=== PATIENT | female | born 1965 | race Caucasian/White ===

== ENCOUNTER 2025-05-13 15:14 | Inpatient (IN) ==
[2025-05-13] MEDS: SODIUM CHLORIDE 0.9% 500 ML IV STA (15:55)
[2025-05-13] MEDS: ONDANSETRON INJ 2 MG/ML 2 ML VIAL IV STA (15:55)
[2025-05-13] MEDS: FAMOTIDINE 20MG IV PUSH 20 MG/5 ML SYR IV STA (15:55)
--- NOTE | 2025-05-13 15:58 | Emergency Department Note ---
Impression & Plan SBO (small bowel obstruction), Vomiting, Coffee ground emesis, History of gastric bypass ED Provider Note NAME: VIOLET BURRELL AGE: 59 SEX: F : 1965 ARRIVES VIA: Walk-In INFORMANT: [Patient] ED PROVIDER(S): [Arcadio Suggs MD] CHIEF COMPLAINT: GI bleeding HISTORY OF PRESENT ILLNESS: Patient is a 59-year-old female who presents with several weeks of left arm pain in the region of the forearm. She thought she just pulled a muscle. She states that last evening, she felt bloated and thought she might just have some gas issues. This morning, the left arm pain seemed worse and she began vomiting around 3 or 4 hours ago. The vomit was coffee-ground in color. She has felt tired and fatigued and she noticed some black stool. The patient has not had cough or fever. She does not take any blood thinning agents, she does not use aspirin or nonsteroidals. She has had a previous bariatric surgery. She is on Prilosec daily. PMHx/PSHx/Social Hx: See Below PHYSICAL EXAM: GENERAL: Patient is in no acute distress. HEENT: No acute trauma, normocephalic atraumatic, mucous membranes moist, no nasal congestion. NECK: No stridor, no adenopathy, no meningismus, trachea is midline. LUNGS: Clear to auscultation bilaterally, no wheeze, no rhonchi, breath sounds equal. HEART: Without murmurs gallops or rubs, regular rate and rhythm. ABDOMEN: Soft, tender in the epigastrium, no distention. EXTREMITIES: No cyanosis, full range of motion of all the joints without pain or difficulty. Mild bilateral pedal edema. NEUROLOGIC: Oriented x 3, no acute motor or sensory deficits, no focal weakness. SKIN: No jaundice, no diaphoresis. Rectal: Darker stool, heme-negative. Exam performed with female nurse wired music operator. DIFFERENTIAL DIAGNOSIS: GI bleeding, ulcer, gastritis, anemia, foodborne or viral illness, bowel obstruction, among others. EMERGENCY DEPARTMENT PROCEDURES: MEDICAL DECISION MAKING: There is no leukocytosis or concerning anemia. There is a normal platelet count. No coagulopathy. No renal failure or significant electrolyte abnormality. No concerning liver enzyme elevation. No evidence for pancreatitis. ECG shows a sinus rhythm, no acute ST elevation. Cardiac enzyme testing x 1 is not consistent with acute cardiac injury. Abdominal and pelvis CT shows a small bowel obstruction. I did perform a rectal exam, stool was dark in color but heme-negative. Patient received IV saline, IV Protonix, IV Zofran and IV morphine. She was given IV Pepcid, IV Tylenol. With the above interventions, the patient was feeling improved. The patient presents with coffee-ground emesis. She was found to have a small bowel obstruction. Certainly, with her history of gastric bypass, upper GI bleeding is a true consideration. I do think the patient deserves a hospital stay with further workup and care. I did speak with general surgery. The patient is to be hospitalized on the medicine service. Supportive measures for now, no need for acute surgical intervention. I spoke with the patient and case management, the on-call hospitalist was consulted. Prior/Outside records/notes reviewed: None ECG per my interpretation: Indication was possible GI bleeding. ECG shows a normal sinus rhythm with a rate of 87. There is no ST elevation, no PVCs. The QTc is 457. Continuous Cardiac Monitoring per my interpretation: An order was placed for continuous cardiac monitoring. The monitor shows a rate of 94 with normal sinus rhythm. Imaging/x-ray results per my interpretation: Chronic Medical/Social conditions affecting care: History of previous gastric weight loss surgery. Care/Management discussed with: General Surgery-Dr. Hoskins. Case management and the on-call hospitalist. Level of care consideration(s): After review of the information above and other included data: --I believe the patient requires escalation of care to admission DISPOSITION: Admission Past Med/Surg History Problem List (Updated 05/13/25 @ 20:55 by Arcadio Suggs MD) History of gastric bypass (Acute) Coffee ground emesis (Acute) Vomiting (Acute) SBO (small bowel obstruction) (Acute) Small bowel obstruction Encounter for pre-operative examination Medical History Osteoarthritis Spinal stenosis cervical area Gastric ulcer hx as a child ("bleeding ulcer") GERD (gastroesophageal reflux disease) Hx of El thyroiditis euthyroid per patient/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 ([facility]) Family History Grandfather (Maternal) Family history of diabetes mellitus Mother Family history of diabetes mellitus Other No family history of adverse response to anesthesia Social History Smoking Status: Never smoker Second Hand Exposure: Yes ( smokes in the home); Do You Dip or Chew Tobacco: No; Hx Alcohol Use: Yes Hx Substance Use: No Preferred Language: Estonian Communication Ability: Effective Network Lead Required: No Beliefs That Will Affect Care: None Current Living Situation: Spouse Feels Safe at Home: Yes Assistive Devices: CPAP, Denture - Upper and Glasses Allergies Allergies Allergy/AdvReac Type Severity Reaction Status Date / Time No Known Allergies Allergy Unknown Verified 02/08/20 11:35 Home Meds Home Medications Medication Instructions Recorded Confirmed omeprazole 20 mg capsule,delayed 20 mg PO DAILY 02/08/20 05/13/25 release Bariatric Multivitamins 1 tab PO DAILY 05/13/25 05/13/25 acetaminophen 500 mg tablet 500 - 1,000 mg PO Q6H PRN Pain 05/13/25 05/13/25 oxybutynin chloride 5 mg 5 mg PO PM 05/13/25 05/13/25 tablet,extended release 24 hr semaglutide (weight loss) 2.4 2.4 mg subcut WK 05/13/25 05/13/25 mg/0.75 mL subcutaneous pen injector (Annalisa) Results & Data (ED) Vital Signs Vital Signs - 24 hr 05/13/25 15:15 05/13/25 15:33 05/13/25 15:43 Temperature 36.7 C Temperature Source Temporal Artery Scan Pulse Rate - Lying 86 Pulse Rate - Sitting 89 Pulse Rate - Standing 89 Pulse Rate 94 H 90 Pulse Rate from SpO2 Sensor 90 Pulse Rhythm Regular Pulse Strength Normal Respiratory Rate 20 17 Blood Pressure - Lying 143/90 H Blood Pressure - Sitting 135/93 Blood Pressure- Standing 148/106 H Blood Pressure 143/96 H 143/90 H Blood Pressure Mean 111 107 Blood Pressure Position Sitting Pulse Oximetry 98 100 Oxygen Delivery Method Room Air Sepsis New/Unexplained Change in Mental Status N/A Sepsis Action Taken by Nursing No Action Required 05/13/25 15:45 05/13/25 15:54 05/13/25 16:01 Temperature Temperature Source Pulse Rate - Lying Pulse Rate - Sitting Pulse Rate - Standing Pulse Rate 89 87 86 Pulse Rate from SpO2 Sensor 88 Pulse Rhythm Pulse Strength Respiratory Rate 21 18 Blood Pressure - Lying Blood Pressure - Sitting Blood Pressure- Standing Blood Pressure 135/93 Blood Pressure Mean 107 Blood Pressure Position Pulse Oximetry 100 99 Oxygen Delivery Method Room Air Sepsis New/Unexplained Change in Mental Status Sepsis Action Taken by Nursing 05/13/25 16:03 05/13/25 16:42 05/13/25 17:09 Temperature Temperature Source Pulse Rate - Lying Pulse Rate - Sitting Pulse Rate - Standing Pulse Rate 91 H 92 H 84 Pulse Rate from SpO2 Sensor 90 92 H 85 Pulse Rhythm Pulse Strength Respiratory Rate 17 15 16 Blood Pressure - Lying Blood Pressure - Sitting Blood Pressure- Standing Blood Pressure 148/106 H 141/88 H 131/82 Blood Pressure Mean 120 105 98 Blood Pressure Position Pulse Oximetry 99 99 99 Oxygen Delivery Method Sepsis New/Unexplained Change in Mental Status Sepsis Action Taken by Nursing 05/13/25 17:21 05/13/25 17:27 05/13/25 17:30 Temperature Temperature Source Pulse Rate - Lying Pulse Rate - Sitting Pulse Rate - Standing Pulse Rate 86 88 Pulse Rate from SpO2 Sensor 86 90 Pulse Rhythm Pulse Strength Respiratory Rate 16 19 Blood Pressure - Lying Blood Pressure - Sitting Blood Pressure- Standing Blood Pressure 125/86 Blood Pressure Mean 98 Blood Pressure Position Pulse Oximetry 98 100 Oxygen Delivery Method Sepsis New/Unexplained Change in Mental Status Sepsis Action Taken by Nursing 05/13/25 17:33 05/13/25 18:39 05/13/25 19:03 Temperature Temperature Source Pulse Rate - Lying Pulse Rate - Sitting Pulse Rate - Standing Pulse Rate 94 H 90 85 Pulse Rate from SpO2 Sensor 93 H 89 85 Pulse Rhythm Pulse Strength Respiratory Rate 20 18 14 Blood Pressure - Lying Blood Pressure - Sitting Blood Pressure- Standing Blood Pressure 139/99 120/79 Blood Pressure Mean 112 92 Blood Pressure Position Pulse Oximetry 97 98 99 Oxygen Delivery Method Sepsis New/Unexplained Change in Mental Status Sepsis Action Taken by Nursing 05/13/25 19:42 05/13/25 20:06 Temperature Temperature Source Pulse Rate - Lying Pulse Rate - Sitting Pulse Rate - Standing Pulse Rate 85 81 Pulse Rate from SpO2 Sensor 88 Pulse Rhythm Pulse Strength Respiratory Rate 19 Blood Pressure - Lying Blood Pressure - Sitting Blood Pressure- Standing Blood Pressure 145/93 H Blood Pressure Mean 110 Blood Pressure Position Pulse Oximetry 97 Oxygen Delivery Method Sepsis New/Unexplained Change in Mental Status Sepsis Action Taken by Residential Medications Current Medication List: was personally reviewed by me Laboratory Data Attestation: I reviewed the patient's lab results. 05/13/25 15:45 05/13/25 15:45 Lab Results 05/13/25 05/13/25 Range/Units 15:45 18:28 WBC 10.78 (4.8-10.8) K/ul RBC 4.47 (4.20-5.40) M/uL Hgb 14.8 (12.0-16.0) g/dl Hct 43.5 (37.0-47.0) % MCV 97.3 (80.0-100.0) fL MCH 33.1 (25.0-34.0) pg MCHC 34.0 (32.0-36.0) g/dL RDW Std Deviation 44.0 (36.4-46.3) fL RDW Coeff of Flako 12.2 (11.5-14.5) % Plt Count 309 (130-400) K/uL MPV 9.5 (9.4-12.4) fL PT 10.5 (9.0-12.0) Seconds INR 1.0 (0.9-1.1) APTT 25 (21-31) Seconds PTT Ratio 0.9 Sodium 141 (136-145) mmol/L Potassium 4.2 (3.5-5.1) mmol/L Chloride 104 (98-107) mmol/L Carbon Dioxide 31 (21-32) mmol/L Anion Gap 6 (3-11) BUN 11 (6-23) mg/dl Creatinine 0.77 (0.6-1.2) mg/dl Est Cr Clr Drug Dosing 65.8 ml/min eGFR 88.26 BUN/Creatinine Ratio 14.3 (10-20) Glucose 101 H (70-99(Fasting)) mg/dl Calcium 9.2 (8.6-10.3) mg/dl Total Bilirubin 0.7 (0.2-1.0) mg/dl AST 24 (13-39) U/L ALT 21 (7-52) U/L Alkaline Phosphatase 71 (34-104) U/L Troponin I High Sens 4.1 (0-14) pg/ml Total Protein 6.9 (6.0-8.3) gm/dl Albumin 3.9 (3.4-5.0) gm/dl Globulin 3.0 (2.5-4.0) gm/dl Albumin/Globulin Ratio 1.3 (0.9-2) Lipase 16 (11-82) U/L Blood Type A Positive Antibody Screen NEGATIVE Administered Medications Sodium Chloride (Nss) 500 mls @ 80 mls/hr IV .Q6H15M PANCHO Stop: 05/14/25 21:14 Last Admin: 05/13/25 20:31 Dose: 80 mls/hr Documented By: DYLAN Discontinued Medications Pantoprazole Sodium 80 mg/ (Dextrose) 120 mls @ 400 mls/hr IV NOW ONE Stop: 05/13/25 15:54 Last Infusion: 05/13/25 17:11 Dose: Infused Documented By: Admin: 05/13/25 16:25 Dose: 400 mls/hr Documented By: DYLAN Famotidine (Pepcid 20mg Iv Push) 20 mg in 5 mls @ 2.5 mls/min IV NOW STA Stop: 05/13/25 15:38 Last Admin: 05/13/25 15:55 Dose: 2.5 mls/min Documented By: DYLAN Sodium Chloride (Nss) 500 mls @ 999 mls/hr IV .Q31M STA Stop: 05/13/25 16:07 Last Infusion: 05/13/25 16:30 Dose: Infused Documented By: Admin: 05/13/25 15:55 Dose: 999 mls/hr Documented By: DYLAN Acetaminophen (Ofirmev) 1,000 mg in 100 mls @ 400 mls/hr IV NOW STA Stop: 05/13/25 18:23 Last Infusion: 05/13/25 20:06 Dose: Infused Documented By: Admin: 05/13/25 18:46 Dose: 400 mls/hr Documented By: DYLAN Ioversol (Optiray 320 100ml) 93 ml IV ONCE ONE Stop: 05/13/25 16:33 Last Admin: 05/13/25 16:32 Dose: 93 ml Documented By: WALLY Morphine Sulfate (Morphine Sulfate 4 Mg/Ml 1 Ml Carp\\Vial) 4 mg IV NOW STA Stop: 05/13/25 18:10 Last Admin: 05/13/25 18:46 Dose: 4 mg Documented By: DYLAN Ondansetron HCl (Ondansetron Inj 2 Mg/Ml 2 Ml Vial) 4 mg IV NOW STA Stop: 05/13/25 15:38 Last Admin: 05/13/25 15:55 Dose: 4 mg Documented By: DYLAN Imaging Data Radiologist's Impression: Abdomen/Pelvis CT 05/13/25 16:13 EXAM: CT abd pelvis IV con only CLINICAL HISTORY: hematemesis. TECHNIQUE: CT of the abdomen and pelvis was performed with contrast 93 ml Optiray 320, with the following protocol: axial images and reconstructed coronal and sagittal images. One of the following dose reduction techniques was utilized for this exam: Automated exposure control, adjustment of the mA and/or kV according to patient size, and use of iterative reconstruction. COMPARISON: No prior studies available for comparison. FINDINGS: Abdomen: Liver: The liver is normal in size, showing homogenous reduced CT density of its parenchyma. No focal lesions, cysts, or masses were identified. Hepatic vasculature and biliary ducts are unremarkable. The portal and the superior mesenteric veins are patent with no thrombosis. Gallbladder and Biliary System: The gallbladder is normal in size and shape. No wall thickening, pericholecystic fluid, A small density is noted within the gallbladder lumen measuring 5 mm likely a gallstone. The common bile duct is normal in caliber without dilation. Pancreas: The pancreatic head, body, and tail are visualized and appear normal in size and density. No pancreatic masses or calcifications were noted. The pancreatic duct is not dilated. Spleen: Normal in size, shape, and density. No splenic lesions or masses were identified. Appendix: The appendix is not clearly visualized without terrell appendiceal fat stranding, and without an appendicolith. No evidence of appendiceal abscess or perforation. Kidneys and Adrenal Glands: Evidence of a well-defined left renal lower calyceal radiodense stone measures 6 mm and of average mean HU of 520-550. No hydronephrosis. Both kidneys are normal in size, shape, and position. Cortical thickness is within normal limits. No sizable right renal radiodense stones. Adrenal glands are unremarkable with no evidence of masses or hyperplasia. Pelvis: Urinary Bladder: Normal in contour and wall thickness. No intraluminal lesions identified. Uterus and adnexa: Couldn't be visualised with no sizable pelvic soft tissue masses. Vagina: Normal in contour and wall thickness. Bowel: Evidence of dilated small bowel loops mainly seen implicating the jejunal loops seen filling the central abdomen and the left hypochondrial regions, reachinga caliber up to 5 cm along the maximum AP dimension, with transition of caliber is seen along the midline posteriorly opposite to L5-S1 level closely related to surgical sutures, seen closely related to the left iliac vessels. The stomach/gastric pouch is collapsed, with surgical sutures seen related to it. Surgical sutures are seen related to proximal jejunal loops. The ileal bowel loops are collapsed with normal CT appearance of its wall. The ascending and the transverse colon is partially filled with fecal matter, with near total collapse of the descending and sigmoid colon as well as the rectum. Peritoneal and Retroperitoneal Structures: Mild ascites. No pathological enlarged lymphadenopathy was noted. Bones and Soft Tissues: Evidence of grade I degenerative anterolisthesis of L5 over S1 vertebral body. Spondylodegenerative changes along the spine. No fractures or abnormal masses were identified. IMPRESSION: 1. An overall picture of small bowel obstruction with dilated jejunal bowel loops and with caliber transition opposite to L5-S1 level closely related to surgical sutures, seen closely related to the left iliac vessels with no sizable soft tissue masses, and it could be attributed to adhesive fibrotic bands as a sequelae of prior surgical intervention (possible bariatric surgery) i.e. adhesive intestinal obstruction. 2. Mild ascites. 3. Fatty liver. 4. Left renal lower calyceal non-obstructive stone with no associated hydronephrosis. 5. A small density is noted within the gallbladder lumen measuring 5 mm likely a gallstone. Electronically signed by Nahid Stone 05-13-2025 6:25 PM Discharge Plan Visit Data Chief Complaint: GI Bleed Stated Complaint: LEFT ARM PAIN,VOMITING,LOOKS LIKE COFFE GROUNDS ED Provider: Arcadio Suggs Discharge Problem: SBO (small bowel obstruction), Vomiting, Coffee ground emesis, History of gastric bypass Patient Disposition: Admitted As Inpatient Condition: Fair Forms Stand Alone Forms: My [facility] Prescriptions Prescriptions: No Action omeprazole 20 mg Capsule,Delayed Release(Dr/Ec) 20 mg PO DAILY acetaminophen [Tylenol Ex Str Rapid Release] 500 mg Tablet 500 - 1,000 mg PO Q6H PRN (Reason: Pain) oxybutynin chloride 5 mg tablet extended release 24hr 5 mg PO PM Wegovy 2.4 mg/0.75 mL pen injector 2.4 mg SUBCUT WK Bariatric Multivitamins 1 tab PO DAILY Rx Instructions: without iron Referrals Referrals: Levy Bullock MD [Outside Practitioners] - Discharge Problem: Vomiting Qualifiers: Vomiting type: unspecified Nausea presence: with nausea Qualified Code(s): R 11.2 - Nausea with vomiting, unspecified
[2025-05-13 16:01] LABS: Hematocrit (blood only) 43.5 % (37.0-47.0); Hemoglobin 14.8 g/dl (12.0-16.0); Mean Corpuscular Hemoglobin 33.1 pg (25.0-34.0); Mean Corpuscular Volume 97.3 fL (80.0-100.0); Mean Platelet Volume 9.5 fL (9.4-12.4); Platelet Count 309 K/uL (130-400); RDW Coefficient of Variation 12.2 % (11.5-14.5); Red Blood Count 4.47 M/uL (4.20-5.40); White Blood Count 10.78 K/ul (4.8-10.8)
[2025-05-13 16:19] LABS: Albumin Globulin Ratio 1.3 (0.9-2); Albumin Level 3.9 gm/dl (3.4-5.0); BUN Creatinine Ratio 14.3 (10-20); Bilirubin,Total 0.7 mg/dl (0.2-1.0); Calcium 9.2 mg/dl (8.6-10.3); Creatinine Clr Calc Pharmacy 65.8 ml/min; Potassium 4.2 mmol/L (3.5-5.1); Total Protein 6.9 gm/dl (6.0-8.3)
[2025-05-13 16:25] LABS: Troponin I High Sensitivity 4.1 pg/ml (0-14)
[2025-05-13] MEDS: PANTOprazole 80 MG in DEXTROSE 5% 100 ML IV ONE (16:25)
[2025-05-13] MEDS: OPTIRAY 320 100ml IV ONE (16:32)
[2025-05-13 17:15] LABS: Partial Thromboplastin Ratio 0.9; Partial Thromboplastin Time 25 Seconds (21-31); Prothrombin Time 10.5 Seconds (9.0-12.0)
--- NOTE | 2025-05-13 18:26 | CT Scan Report ---
EXAM: CT abd pelvis IV con only CLINICAL HISTORY: hematemesis. TECHNIQUE: CT of the abdomen and pelvis was performed with contrast 93 ml Optiray 320, with the following protocol: axial images and reconstructed coronal and sagittal images. One of the following dose reduction techniques was utilized for this exam: Automated exposure control, adjustment of the mA and/or kV according to patient size, and use of iterative reconstruction. COMPARISON: No prior studies available for comparison. FINDINGS: Abdomen: Liver: The liver is normal in size, showing homogenous reduced CT density of its parenchyma. No focal lesions, cysts, or masses were identified. Hepatic vasculature and biliary ducts are unremarkable. The portal and the superior mesenteric veins are patent with no thrombosis. Gallbladder and Biliary System: The gallbladder is normal in size and shape. No wall thickening, pericholecystic fluid, A small density is noted within the gallbladder lumen measuring 5 mm likely a gallstone. The common bile duct is normal in caliber without dilation. Pancreas: The pancreatic head, body, and tail are visualized and appear normal in size and density. No pancreatic masses or calcifications were noted. The pancreatic duct is not dilated. Spleen: Normal in size, shape, and density. No splenic lesions or masses were identified. Appendix: The appendix is not clearly visualized without terrell appendiceal fat stranding, and without an appendicolith. No evidence of appendiceal abscess or perforation. Kidneys and Adrenal Glands: Evidence of a well-defined left renal lower calyceal radiodense stone measures 6 mm and of average mean HU of 520-550. No hydronephrosis. Both kidneys are normal in size, shape, and position. Cortical thickness is within normal limits. No sizable right renal radiodense stones. Adrenal glands are unremarkable with no evidence of masses or hyperplasia. Pelvis: Urinary Bladder: Normal in contour and wall thickness. No intraluminal lesions identified. Uterus and adnexa: Couldn't be visualised with no sizable pelvic soft tissue masses. Vagina: Normal in contour and wall thickness. Bowel: Evidence of dilated small bowel loops mainly seen implicating the jejunal loops seen filling the central abdomen and the left hypochondrial regions, reachinga caliber up to 5 cm along the maximum AP dimension, with transition of caliber is seen along the midline posteriorly opposite to L5-S1 level closely related to surgical sutures, seen closely related to the left iliac vessels. The stomach/gastric pouch is collapsed, with surgical sutures seen related to it. Surgical sutures are seen related to proximal jejunal loops. The ileal bowel loops are collapsed with normal CT appearance of its wall. The ascending and the transverse colon is partially filled with fecal matter, with near total collapse of the descending and sigmoid colon as well as the rectum. Peritoneal and Retroperitoneal Structures: Mild ascites. No pathological enlarged lymphadenopathy was noted. Bones and Soft Tissues: Evidence of grade I degenerative anterolisthesis of L5 over S1 vertebral body. Spondylodegenerative changes along the spine. No fractures or abnormal masses were identified. IMPRESSION: 1. An overall picture of small bowel obstruction with dilated jejunal bowel loops and with caliber transition opposite to L5-S1 level closely related to surgical sutures, seen closely related to the left iliac vessels with no sizable soft tissue masses, and it could be attributed to adhesive fibrotic bands as a sequelae of prior surgical intervention (possible bariatric surgery) i.e. adhesive intestinal obstruction. 2. Mild ascites. 3. Fatty liver. 4. Left renal lower calyceal non-obstructive stone with no associated hydronephrosis. 5. A small density is noted within the gallbladder lumen measuring 5 mm likely a gallstone. Electronically signed by Nahid Stone 05-13-2025 6:25 PM
[2025-05-13] MEDS: MoRPHine SULFATE 4 MG/ML 1 ML CARP\\VIAL IV STA (18:46)
[2025-05-13] MEDS: ACETAMINOPHEN 1,000 MG/100 ML VIAL IV STA (18:46)
[2025-05-13] MEDS ORDERED: ONDANSETRON INJ 2 MG/ML 2 ML VIAL IV PRN (19:55)
--- NOTE | 2025-05-13 20:03 | History & Physical Report ---
Date of Service May 13, 2025 Assessment & Plan (1) Small bowel obstruction: Plan Assessment/plan Small bowel obstruction Possible upper GI bleed Patient with history of multiple abdominal surgery presents to the hospital with nausea, vomiting and coffee-ground emesis Hemoglobin of 14.8 CT abdomen and pelvis shows finding consistent with small bowel obstruction mainly seen implicating the jejunal loops. Bowel rest with n.p.o., IV fluids, encourage ambulation IV PPI twice daily Consult general surgery for SBO Will obtain GI evaluation for possible upper GI bleed monitor CBC GERDon IV Protonix OSAunable to tolerate CPAP Full code DVT prophylaxis SCDs Time spent evaluating patient, direct bedside care, chart review, placing orders, interpretation of diagnostic studies, discussion with consultants, patient, and family members, as well as other required patient management activities is 75 minutes Please note the above document was generated using voice recognition software. It may contain grammatical, syntax or spelling errors. Any formal questions or concerns about the content, text or information contained within the body of this dictation should be directly addressed to the provider for clarification History of Present Illness Chief Complaint: Nausea and vomiting for 1 day Abdominal pain for 1 day Primary Care Provider: NO PCP History obtained from chart review and interview with the patient. Past medical history of chronic lymphocytic thyroiditis, SAMIRA, NSVT, GERD, status post gastric bypass, osteoarthritis Past surgical history of laparoscopic hernia repair, lysis of adhesions in 2011, laparoscopic Alonso-en-Y bypass in 2016, partial hysterectomy in 2017, section x 2 Patient presents to the hospital with abdominal PAIN nausea and vomiting since last evening. She reports that the vomitus was coffee-ground in color. She denies fever, chills, chest pain or shortness of breath. On presentation to the ED she was normotensive, afebrile and saturating well in room air. CT abdomen pelvis showed features consistent with small bowel obstruction. ED provider discussed with surgery on-call; recommended conservative management with bowel rest, IV fluids. Allergies Allergy/AdvReac Type Severity Reaction Status Date / Time No Known Allergies Allergy Unknown Verified 02/08/20 11:35 Home Medications Medication Instructions Recorded Confirmed Type omeprazole 20 mg capsule,delayed 20 mg PO DAILY 02/08/20 05/13/25 History release Bariatric Multivitamins 1 tab PO DAILY 05/13/25 05/13/25 History acetaminophen 500 mg tablet 500 - 1,000 mg PO Q6H PRN Pain 05/13/25 05/13/25 History oxybutynin chloride 5 mg 5 mg PO PM 05/13/25 05/13/25 History tablet,extended release 24 hr semaglutide (weight loss) 2.4 2.4 mg subcut WK 05/13/25 05/13/25 History mg/0.75 mL subcutaneous pen injector (Wegovy) Past Med/Surg History Problem List (Updated 05/13/25 @ 20:01 by Fernando Bradshaw MD) Small bowel obstruction Encounter for pre-operative examination Medical History (Updated 05/13/25 @ 20:01 by Fernando Bradshaw MD) Osteoarthritis Spinal stenosis cervical area Gastric ulcer hx as a child ("bleeding ulcer") GERD (gastroesophageal reflux disease) Hx of El thyroiditis euthyroid per patient/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 ([facility]) Family History Grandfather (Maternal) Family history of diabetes mellitus Mother Family history of diabetes mellitus Other No family history of adverse response to anesthesia Social History Smoking Status: Never smoker Second Hand Exposure: Yes ( smokes in the home); Do You Dip or Chew Tobacco: No; Hx Alcohol Use: Yes Hx Substance Use: No Preferred Language: Macedonian Communication Ability: Effective Manager Financial Reporting Required: No Beliefs That Will Affect Care: None Current Living Situation: Spouse Feels Safe at Home: Yes Assistive Devices: CPAP, Denture - Upper and Glasses Physical Exam Physical Exam: On physical examination; Constitutional: Awake, alert oriented x 3. Respiratory: normal respiratory effort, lungs clear to auscultation, no wheeze, rales, rhonchi. Normal insp/exp effort, no accessory muscle use Cardiovascular: RRR, no murmur, no edema Vessels: no JVD or carotid bruit Chest: normal inspection of chest Abdomen: Distended, nontender. Bowel sound present Musculoskeletal: no cyanosis or clubbing, extremities motor strength 5/5 Skin: no rashes, warm and dry normal turgor Neurologic: PERRL, EOMI, accommodation nl, no face palsy, no dysarthria CN's II- XI intact bilaterally and moves all extremities Psychiatric: A+Ox3, euthymic affect Results & Data Results & Data Vital Signs (Past 12 Hours) Vital Signs Temp Pulse Resp BP Pulse Ox O2 Del Method 05/13/25 17:33 94 H 20 97 05/13/25 17:30 125/86 05/13/25 17:27 88 19 100 05/13/25 17:21 86 16 98 05/13/25 17:09 84 16 131/82 99 05/13/25 16:42 92 H 15 141/88 H 99 05/13/25 16:03 91 H 17 148/106 H 99 05/13/25 16:01 86 05/13/25 15:54 87 18 99 Room Air 05/13/25 15:45 89 21 135/93 100 05/13/25 15:33 90 17 143/90 H 100 05/13/25 15:15 36.7 C 94 H 20 143/96 H 98 Room Air
[2025-05-13] MEDS: SODIUM CHLORIDE 0.9% 500 ML IV SCH (20:31)
[2025-05-13] MEDS: PANTOprazole 40 MG/10 ML SYR IV SCH (23:00)
[2025-05-13] MEDS: MoRPHine SULFATE 2 MG/ML CARP IV PRN (23:01)
[2025-05-14 07:24] LABS: Basophils # (auto) 0.07 K/uL (0.00-0.20); Basophils % (auto) 0.8 %; Eosinophils # (auto) 0.16 K/uL (0.00-0.50); Eosinophils % (auto) 1.8 %; Hematocrit (blood only) 37.2 % (37.0-47.0); Hemoglobin 12.7 g/dl (12.0-16.0); Immature Granulocytes # (auto) 0.03 K/uL (0.01-0.20); Immature Granulocytes % (auto) 0.3 %; Lymphocytes # (auto) 1.44 K/uL (1.20-3.40); Lymphocytes % (auto) 15.9 %; Mean Corpuscular Hemoglobin 33.5 pg (25.0-34.0); Mean Corpuscular Hgb Conc 34.1 g/dL (32.0-36.0); Mean Corpuscular Volume 98.2 fL (80.0-100.0); Mean Platelet Volume 9.6 fL (9.4-12.4); Monocytes % (auto) 12.1 %; Neutrophils # (auto) 6.26 K/uL (1.40-6.50); Neutrophils % (auto) 69.1 %; Platelet Count 251 K/uL (130-400); RDW Coefficient of Variation 12.4 % (11.5-14.5); Red Blood Count 3.79 M/uL (4.20-5.40); White Blood Count 9.06 K/ul (4.8-10.8)
[2025-05-14 07:40] LABS: BUN Creatinine Ratio 19.5 (10-20); Calcium 8.2 mg/dl (8.6-10.3); Creatinine Clr Calc Pharmacy 65.7 ml/min; Potassium 4.1 mmol/L (3.5-5.1)
--- NOTE | 2025-05-14 09:09 | Gastrointestinal Consultation ---
Date of Consultation May 14, 2025 Assessment & Plan (1) Coffee ground emesis: I suspect the coffee ground emesis is related to the vomiting that is related to her SBO. It is minimal coffee ground emesis by description so I don't plan EGD unless it becomes clinically significant. Would treat SBO with bowel rest and let surgery step in when they feel appropriate. I would treat her with PPI for the time being. History of Present Illness Reason for Consultation: coffee ground emesis Attending Physician: Ilan Patel MD History of Present Illness 59 year old female admitted with one day history of abdominal distension and vomiting. She says she vomited "green liquid with coffee ground looking specs in it". She did this a total of seven times yesterday and then was admitted. She has CT findings consistent with SBO involving jejunum. She feels a little better today and has passed a little gas. She has had EGD in the past and has had colonoscopy in the last three years. She gets these done at [facility]. She has not had abdominal complaints prior to yesterday. She has had multiple surgeries on her abdomen including a gastric bypass. She has never had a SBO before. Allergies Allergy/AdvReac Type Severity Reaction Status Date / Time No Known Allergies Allergy Unknown Verified 02/08/20 11:35 Home Medications Medication Instructions Recorded Confirmed Type omeprazole 20 mg capsule,delayed 20 mg PO DAILY 02/08/20 05/13/25 History release Bariatric Multivitamins 1 tab PO DAILY 05/13/25 05/13/25 History acetaminophen 500 mg tablet 500 - 1,000 mg PO Q6H PRN Pain 05/13/25 05/13/25 History oxybutynin chloride 5 mg 5 mg PO PM 05/13/25 05/13/25 History tablet,extended release 24 hr semaglutide (weight loss) 2.4 2.4 mg subcut WK 05/13/25 05/13/25 History mg/0.75 mL subcutaneous pen injector (Wegovy) Patient History Medical History Osteoarthritis Spinal stenosis cervical area Gastric ulcer hx as a child ("bleeding ulcer") GERD (gastroesophageal reflux disease) Hx of El thyroiditis euthyroid per patient/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 ([facility]) Family History Grandfather (Maternal) Family history of diabetes mellitus Mother Family history of diabetes mellitus Other No family history of adverse response to anesthesia Social History Smoking Status: Never smoker Second Hand Exposure: No; Do You Dip or Chew Tobacco: No; Tobacco Cessation Education Requested by Patient: No Hx Alcohol Use: Yes Alcohol type: wine Hx Substance Use: No Preferred Language: Kazakh Communication Ability: Effective Inspector Air Carrier Required: No Beliefs That Will Affect Care: None Current Living Situation: Spouse Other Information That Helps Us Care for You: No Feels Safe at Home: Yes Safety Concerns: Feels Safe At This Time Assistive Devices: None Review of Systems Review of Systems: All systems reviewed & are unremarkable except as noted in HPI & below Physical Exam Physical Exam: Pleasant female in no distress Constitutional: WD/WN, vitals as above Neck: trachea midline, no thyromegaly Respiratory: normal respiratory effort, lungs clear to auscultation Cardiovascular: RRR, no murmur, no edema Gastrointestinal (Abdomen): Inspection/Auscultation: abdomen normal to inspection Percussion/Palpation: + abdomen tender (diffusely) and abdomen soft; no hepatosplenomegaly Musculoskeletal: Extremities: extremities normal to inspection Results & Data Vital Signs (Past 12 Hours) Vital Signs Temp Pulse Pulse Resp BP BP Pulse Ox 05/14/25 07:55 36.6 C 84 16 114/72 97 05/13/25 22:42 36.8 C 75 14 123/78 98 05/13/25 22:15 36.8 C 74 16 123/78 99 05/13/25 21:38 83 18 112/77 98 O2 Del Method 05/14/25 07:55 Room Air 05/13/25 22:42 Room Air 05/13/25 22:15 Room Air 05/13/25 21:38 Room Air Laboratory Results 05/14/25 05/13/25 05/13/25 Range/Units 06:30 18:28 15:45 WBC 9.06 10.78 (4.8-10.8) K/ul RBC 3.79 L 4.47 (4.20-5.40) M/uL Hgb 12.7 14.8 (12.0-16.0) g/dl Hct 37.2 43.5 (37.0-47.0) % MCV 98.2 97.3 (80.0-100.0) fL MCH 33.5 33.1 (25.0-34.0) pg MCHC 34.1 34.0 (32.0-36.0) g/dL RDW Std Deviation 45.0 44.0 (36.4-46.3) fL RDW Coeff of Flako 12.4 12.2 (11.5-14.5) % Plt Count 251 309 (130-400) K/uL MPV 9.6 9.5 (9.4-12.4) fL Immature Gran % (Auto) 0.3 % Neut % (Auto) 69.1 % Lymph % (Auto) 15.9 % Shelby % (Auto) 12.1 % Eos % (Auto) 1.8 % Baso % (Auto) 0.8 % Neut # (Auto) 6.26 (1.40-6.50) K/uL Lymph # (Auto) 1.44 (1.20-3.40) K/uL Shelby # (Auto) 1.10 H (0.11-0.59) K/uL Eos # (Auto) 0.16 (0.00-0.50) K/uL Baso # (Auto) 0.07 (0.00-0.20) K/uL Immature Gran # (Auto) 0.03 (0.01-0.20) K/uL PT 10.5 (9.0-12.0) Seconds INR 1.0 (0.9-1.1) APTT 25 (21-31) Seconds PTT Ratio 0.9 Sodium 142 141 (136-145) mmol/L Potassium 4.1 4.2 (3.5-5.1) mmol/L Chloride 108 H 104 (98-107) mmol/L Carbon Dioxide 29 31 (21-32) mmol/L Anion Gap 5 6 (3-11) BUN 15 11 (6-23) mg/dl Creatinine 0.77 0.77 (0.6-1.2) mg/dl Est Cr Clr Drug Dosing 65.7 65.8 ml/min eGFR 88.26 88.26 BUN/Creatinine Ratio 19.5 14.3 (10-20) Glucose 95 101 H (70-99(Fasting)) mg/dl Calcium 8.2 L 9.2 (8.6-10.3) mg/dl Total Bilirubin 0.7 (0.2-1.0) mg/dl AST 24 (13-39) U/L ALT 21 (7-52) U/L Alkaline Phosphatase 71 (34-104) U/L Troponin I High Sens 4.1 (0-14) pg/ml Total Protein 6.9 (6.0-8.3) gm/dl Albumin 3.9 (3.4-5.0) gm/dl Globulin 3.0 (2.5-4.0) gm/dl Albumin/Globulin Ratio 1.3 (0.9-2) Lipase 16 (11-82) U/L Blood Type A Positive Antibody Screen NEGATIVE Diagnostic Findings Abdomen/Pelvis CT 05/13/25 16:13 EXAM: CT abd pelvis IV con only CLINICAL HISTORY: hematemesis. TECHNIQUE: CT of the abdomen and pelvis was performed with contrast 93 ml Optiray 320, with the following protocol: axial images and reconstructed coronal and sagittal images. One of the following dose reduction techniques was utilized for this exam: Automated exposure control, adjustment of the mA and/or kV according to patient size, and use of iterative reconstruction. COMPARISON: No prior studies available for comparison. FINDINGS: Abdomen: Liver: The liver is normal in size, showing homogenous reduced CT density of its parenchyma. No focal lesions, cysts, or masses were identified. Hepatic vasculature and biliary ducts are unremarkable. The portal and the superior mesenteric veins are patent with no thrombosis. Gallbladder and Biliary System: The gallbladder is normal in size and shape. No wall thickening, pericholecystic fluid, A small density is noted within the gallbladder lumen measuring 5 mm likely a gallstone. The common bile duct is normal in caliber without dilation. Pancreas: The pancreatic head, body, and tail are visualized and appear normal in size and density. No pancreatic masses or calcifications were noted. The pancreatic duct is not dilated. Spleen: Normal in size, shape, and density. No splenic lesions or masses were identified. Appendix: The appendix is not clearly visualized without terrell appendiceal fat stranding, and without an appendicolith. No evidence of appendiceal abscess or perforation. Kidneys and Adrenal Glands: Evidence of a well-defined left renal lower calyceal radiodense stone measures 6 mm and of average mean HU of 520-550. No hydronephrosis. Both kidneys are normal in size, shape, and position. Cortical thickness is within normal limits. No sizable right renal radiodense stones. Adrenal glands are unremarkable with no evidence of masses or hyperplasia. Pelvis: Urinary Bladder: Normal in contour and wall thickness. No intraluminal lesions identified. Uterus and adnexa: Couldn't be visualised with no sizable pelvic soft tissue masses. Vagina: Normal in contour and wall thickness. Bowel: Evidence of dilated small bowel loops mainly seen implicating the jejunal loops seen filling the central abdomen and the left hypochondrial regions, reachinga caliber up to 5 cm along the maximum AP dimension, with transition of caliber is seen along the midline posteriorly opposite to L5-S1 level closely related to surgical sutures, seen closely related to the left iliac vessels. The stomach/gastric pouch is collapsed, with surgical sutures seen related to it. Surgical sutures are seen related to proximal jejunal loops. The ileal bowel loops are collapsed with normal CT appearance of its wall. The ascending and the transverse colon is partially filled with fecal matter, with near total collapse of the descending and sigmoid colon as well as the rectum. Peritoneal and Retroperitoneal Structures: Mild ascites. No pathological enlarged lymphadenopathy was noted. Bones and Soft Tissues: Evidence of grade I degenerative anterolisthesis of L5 over S1 vertebral body. Spondylodegenerative changes along the spine. No fractures or abnormal masses were identified. IMPRESSION: 1. An overall picture of small bowel obstruction with dilated jejunal bowel loops and with caliber transition opposite to L5-S1 level closely related to surgical sutures, seen closely related to the left iliac vessels with no sizable soft tissue masses, and it could be attributed to adhesive fibrotic bands as a sequelae of prior surgical intervention (possible bariatric surgery) i.e. adhesive intestinal obstruction. 2. Mild ascites. 3. Fatty liver. 4. Left renal lower calyceal non-obstructive stone with no associated hydronephrosis. 5. A small density is noted within the gallbladder lumen measuring 5 mm likely a gallstone. Electronically signed by Nahid Stone 05-13-2025 6:25 PM
[2025-05-14] MEDS: ACETAMINOPHEN 1,000 MG/100 ML VIAL IV PRN (09:18)
[2025-05-14] MEDS: LACTATED RINGER'S 1,000 ML IV SCH (09:19)
--- NOTE | 2025-05-14 09:38 | Surgery Consultation ---
Date of Consultation May 14, 2025 Assessment & Plan (1) SBO (small bowel obstruction): Her CT images and results were personally viewed and interpreted by myself She does appear to have a small bowel obstruction likely due to adhesions There is no swelling of the mesentery to suggest internal hernia Just keep her n.p.o. today, no need for an NG tube at this time If she has not made any significant proven or worsens we will repeat a CT of the abdomen pelvis with p.o. contrast tomorrow in hopes this can be therapeutic If she were to worsen or not improve, would recommend transfer to a tertiary care center with bariatric surgery capabilities Will follow (2) History of gastric bypass: History of Present Illness Reason for Consultation: Small bowel obstruction Attending Physician: Ilan Patel MD History of Present Illness This is a 59-year-old female who was admitted yesterday with a small bowel obstruction. She states that she came in with generalized abdominal pain worse in the epigastrium without radiation over the last 24 hours. She was vomiting but has not since she was admitted. She states she is passing a little bit of flatus but no BM. She has a history of multiple abdominal surgeries that include a Alonso-en-Y gastric bypass 15 years ago, multiple C-sections, hysterectomy and hernia repair. She states she does feel overall better this morning than last night but is still having some generalized pain. She denies any fevers or chills. She states she did have some coffee-ground emesis for which GI has been consulted as well. Allergies Allergy/AdvReac Type Severity Reaction Status Date / Time No Known Allergies Allergy Unknown Verified 02/08/20 11:35 Home Medications Medication Instructions Recorded Confirmed Type omeprazole 20 mg capsule,delayed 20 mg PO DAILY 02/08/20 05/13/25 History release Bariatric Multivitamins 1 tab PO DAILY 05/13/25 05/13/25 History acetaminophen 500 mg tablet 500 - 1,000 mg PO Q6H PRN Pain 05/13/25 05/13/25 History oxybutynin chloride 5 mg 5 mg PO PM 05/13/25 05/13/25 History tablet,extended release 24 hr semaglutide (weight loss) 2.4 2.4 mg subcut WK 05/13/25 05/13/25 History mg/0.75 mL subcutaneous pen injector (Wegovy) Patient History Medical History Osteoarthritis Spinal stenosis cervical area Gastric ulcer hx as a child ("bleeding ulcer") GERD (gastroesophageal reflux disease) Hx of El thyroiditis euthyroid per patient/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 ([facility]) Family History Grandfather (Maternal) Family history of diabetes mellitus Mother Family history of diabetes mellitus Other No family history of adverse response to anesthesia Social History Smoking Status: Never smoker Second Hand Exposure: No; Do You Dip or Chew Tobacco: No; Tobacco Cessation Education Requested by Patient: No Hx Alcohol Use: Yes Alcohol type: wine Hx Substance Use: No Preferred Language: Romanian Communication Ability: Effective Scale Adjuster Required: No Beliefs That Will Affect Care: None Current Living Situation: Spouse Other Information That Helps Us Care for You: No Feels Safe at Home: Yes Safety Concerns: Feels Safe At This Time Assistive Devices: None Review of Systems Constitutional: no fever and no chills Eyes: no blind spots and no corrective lenses Ear, Nose, Mouth, Throat: no ear pain and no hearing loss Respiratory: no cough and no dyspnea Cardiovascular: no chest pain and no dyspnea on exertion Gastrointestinal: + abdominal pain, + nausea, + vomiting a nd + constipation; no diarrhea/loose stools Genitourinary: no dysuria and no urinary urgency Musculoskeletal: no back pain and no neck pain Integumentary: no acne, no sores and no erythema Neurologic: no gait abnormality and no headache(s) Psychiatric: no behavioral changes and no depression Hematologic / Lymphatic: no easy bleeding and no easy bruising Physical Exam Constitutional: WD/WN, vitals as above Eyes: PERRL, conjunctivae normal, anicteric sclerae ENMT: external ear and nose normal, oropharynx normal Neck: trachea midline, no thyromegaly Respiratory: normal respiratory effort, lungs clear to auscultation Cardiovascular: RRR, no murmur, no edema Gastrointestinal (Abdomen): normal bowel sounds, soft, nontender, no hepatosplenomegaly Musculoskeletal: no cyanosis or clubbing, extremities motor strength 5/5 Skin: no rashes, warm and dry Neurologic: PERRL, EOMI, accommodation nl, no face palsy, no dysarthria Psychiatric: A+Ox3, euthymic affect Results & Data Vital Signs (Past 12 Hours) Vital Signs Temp Pulse Pulse Resp BP BP Pulse Ox 05/14/25 07:55 36.6 C 84 16 114/72 97 05/13/25 22:42 36.8 C 75 14 123/78 98 05/13/25 22:15 36.8 C 74 16 123/78 99 05/13/25 21:38 83 18 112/77 98 O2 Del Method 05/14/25 07:55 Room Air 05/13/25 22:42 Room Air 05/13/25 22:15 Room Air 05/13/25 21:38 Room Air PG Care Time/CCT Total # of Minutes Spent Total Time Spent with Patient: Total time spent is greater than 50% in coordination of care (as documented) at patient's floor/unit and/or counseling patient: Coding Level of Care Code 81438 IN/OBS CONSULT LVL 5,80M Diagnoses SBO (small bowel obstruction) K56.609 History of gastric bypass Z98.84
--- NOTE | 2025-05-14 13:43 | Hospitalist Progress Note ---
Date of Service May 14, 2025 Assessment & Plan (1) Small bowel obstruction: Plan Small bowel obstruction Possible upper GI bleed -Patient with history of multiple abdominal surgery presents to the hospital with nausea, vomiting and coffee-ground emesis -Hemoglobin of 14.8 -CT abdomen and pelvis shows finding consistent with small bowel obstruction mainly seen implicating the jejunal loops. Plan: -Bowel rest with n.p.o., IV fluids, encourage ambulation -IV PPI twice daily -Consult general surgery, GI for SBO and coffee ground emesis -increase fluid rate based on weight GERDon IV Protonix OSAunable to tolerate CPAP I spent a total of 45 minutes in direct patient care, including [id number] time with the patient and/or family, reviewing medical records, ordering and reviewing diagnostic tests, and coordinating care with other healthcare prov iders. This time includes: history taking, physical examination, medical decision making, counseling, ECG interpretation, imaging interpretation, lab interpretation, orders, and education, excluding time spent in the performance of separately billed services. Admission and Anticipated Discharge Date Admission Date: May 13, 2025 Subjective Patient seen and examined at bedside. Doing better today, abdominal pain improved. Has had several abdominal surgeries which is likely cause of SBO. Passing gas. Review of Systems Review of Systems: CONSTITUTIONAL: Patient denies fevers, chills, sweats and weight changes. EYES: Patient denies any visual symptoms. EARS, NOSE, AND THROAT: No difficulties with hearing. No symptoms of rhinitis or sore throat. CARDIOVASCULAR: Patient denies chest pains, palpitations, orthopnea and paroxysmal nocturnal dyspnea. RESPIRATORY: No dyspnea on exertion, no wheezing or cough. GI: No nausea, vomiting, diarrhea, constipation, abdominal pain, hematochezia or melena. : No urinary hesitancy or dribbling. No nocturia or urinary frequency. No abnormal urethral discharge. MUSCULOSKELETAL: No myalgias or arthralgias. NEUROLOGIC: No chronic headaches, no seizures. Patient denies numbness, tingling or weakness. PSYCHIATRIC: Patient denies problems with mood disturbance. No problems with anxiety. ENDOCRINE: No excessive urination or excessive thirst. DERMATOLOGIC: Patient denies any rashes or skin changes. Physical Exam Physical Exam: Gen: A&O 3 NAD HEENT: NCAT, EOMI, not icteric. External ears normal. No rhinorrhea. Moist mucous membranes. Neck: Supple, full range of motion, no observable masses, No meningeal sign. Lungs: No Respiratory distress. CV: RRR, no edema. Abdomen: trace tenderness in lower abdomen MSK: No joint swelling, no redness. Skin: No rashes, petechiae, lesions. Normal color per patient. Neuro: Normal Gait, Grossly intact. Psych: Appropriate for situation. Results & Data Results & Data Vital Signs (Past 12 Hours) Vital Signs Temp Pulse Resp BP Pulse Ox O2 Del Method 05/14/25 08:30 Room Air 05/14/25 07:55 36.6 C 84 16 114/72 97 Room Air Laboratory Results -personally reviewed, creatinine at baseline, unremarkable WBC and Hgb Medications Administered Acetaminophen (Ofirmev) 1,000 mg in 100 mls @ 400 mls/hr IV Q8H PRN PRN Reason: MILD-MOD PAIN Stop: 05/16/25 19:54 Last Infusion: 05/14/25 09:36 Dose: Infused Documented By: Admin: 05/14/25 09:18 Dose: 400 mls/hr Documented By: HUGH Pantoprazole Sodium (Protonix) 40 mg in 10 mls @ 5 mls/min IV BID PANCHO Stop: 06/12/25 22:39 Last Admin: 05/14/25 09:14 Dose: 5 mls/min Documented By: Admin: 05/13/25 23:00 Dose: 5 mls/min Documented By: EMMA Lactated Ringer's (Lr) 1,000 mls @ 100 mls/hr IV .Q10H PANCHO Stop: 05/17/25 08:29 Last Admin: 05/14/25 09:19 Dose: 100 mls/hr Documented By: HUGH Morphine Sulfate (Morphine Sulfate 2 Mg/Ml Carp) 2 mg IV Q6H PRN PRN Reason: SEVERE PAIN Stop: 05/27/25 19:54 Last Admin: 05/13/25 23:01 Dose: 2 mg Documented By: EMMA
[2025-05-14] MEDS ORDERED: ONDANSETRON INJ 2 MG/ML 2 ML VIAL IV PRN (16:04)
[2025-05-15 07:16] VITALS: RESP 18
[2025-05-15 07:27] LABS: Hemoglobin 12.3 g/dl (12.0-16.0); Mean Corpuscular Hemoglobin 32.1 pg (25.0-34.0); Mean Corpuscular Hgb Conc 32.4 g/dL (32.0-36.0); Mean Corpuscular Volume 99.2 fL (80.0-100.0); Mean Platelet Volume 10.2 fL (9.4-12.4); Platelet Count 199 K/uL (130-400); RDW Coefficient of Variation 12.2 % (11.5-14.5); RDW Standard Deviation 44.2 fL (36.4-46.3); Red Blood Count 3.83 M/uL (4.20-5.40); White Blood Count 5.42 K/ul (4.8-10.8)
[2025-05-15 07:38] LABS: BUN Creatinine Ratio 16.4 (10-20); Calcium 8.4 mg/dl (8.6-10.3); Magnesium 1.7 mg/dl (1.7-2.4); Phosphorus 4.3 mg/dl (2.5-4.9); Potassium 3.9 mmol/L (3.5-5.1)
--- NOTE | 2025-05-15 08:50 | Gastroenterology Progress Note ---
Date of Service May 15, 2025 Assessment & Plan (1) Coffee ground emesis: Plan: I don't plan any endoscopic intervention. No further vomiting and H/H have remained stable. She says she is getting another CT today. Will sign off. Please reconsult if conditions change Admission and Anticipated Discharge Date Admission Date: May 13, 2025 Subjective About the same as yesterday. Still with pain although better. Passing gas but no BM. No more vomiting. H/H are stable. Physical Exam Physical Exam: She looks comfortable Constitutional: WD/WN, vitals as above Results & Data Vital Signs (Past 12 Hours) Vital Signs Temp Pulse Resp BP Pulse Ox O2 Del Method 05/15/25 07:15 36.6 C 82 18 133/85 98 Room Air
--- NOTE | 2025-05-15 09:35 | Surgery Progress Note ---
Date of Service May 15, 2025 Assessment & Plan (1) SBO (small bowel obstruction): Plan: She is only made a little progress over the last 24 hours or so Will repeat a CT of the abdomen pelvis with oral contrast in hopes this can be therapeutic No plans for any urgent surgical intervention as she does have a history of gastric bypass Will follow-up on the CT results and give further recommendations at that time (2) History of gastric bypass: Admission and Anticipated Discharge Date Admission Date: May 13, 2025 Subjective Patient seen and examined. Still with some abdominal pain but improved since yesterday. Denies any nausea or vomiting. She is passing some flatus without BM. Afebrile. Review of Systems Constitutional: no fever and no chills Eyes: no blind spots and no corrective lenses Ear, Nose, Mouth, Throat: no ear pain and no hearing loss Respiratory: no cough and no dyspnea Cardiovascular: no chest pain and no dyspnea on exertion Gastrointestinal: + abdominal pain and + constipation; no nausea, no vomiting and no diarrhea/loose stools Genitourinary: no dysuria and no urinary urgency Musculoskeletal: no back pain and no neck pain Integumentary: no acne, no sores and no erythema Neurologic: no gait abnormality and no headache(s) Psychiatric: no behavioral changes and no depression Hematologic / Lymphatic: no easy bleeding and no easy bruising Physical Exam Constitutional: WD/WN, vitals as above Eyes: PERRL, conjunctivae normal, anicteric sclerae ENMT: external ear and nose normal, oropharynx normal Neck: trachea midline, no thyromegaly Respiratory: normal respiratory effort, lungs clear to auscultation Cardiovascular: RRR, no murmur, no edema Gastrointestinal (Abdomen): Inspection/Auscultation: abdomen normal to inspection; abdomen not distended Percussion/Palpation: + abdomen tender (Mild epigastric) and abdomen soft; no guarding Musculoskeletal: no cyanosis or clubbing, extremities motor strength 5/5 Skin: no rashes, warm and dry Neurologic: PERRL, EOMI, accommodation nl, no face palsy, no dysarthria Psychiatric: A+Ox3, euthymic affect Results & Data Vital Signs (Past 12 Hours) Vital Signs Temp Pulse Resp BP Pulse Ox O2 Del Method 05/15/25 07:15 36.6 C 82 18 133/85 98 Room Air PG Care Time/CCT Total # of Minutes Spent Total Time Spent with Patient: Total time spent is greater than 50% in coordination of care (as documented) at patient's floor/unit and/or counseling patient: Coding Level of Care Code 97817 SUB INP/OBS CARE 2/35MIN Diagnoses SBO (small bowel obstruction) K56.609 History of gastric bypass Z98.84
--- NOTE | 2025-05-15 10:28 | Hospitalist Progress Note ---
Date of Service May 15, 2025 Assessment & Plan (1) Small bowel obstruction: Plan Small bowel obstruction Possible upper GI bleed -Patient with history of multiple abdominal surgery presents to the hospital with nausea, vomiting and coffee-ground emesis -Hemoglobin of 14.8 -CT abdomen and pelvis shows finding consistent with small bowel obstruction mainly seen implicating the jejunal loops. Plan: -Bowel rest with n.p.o., IV fluids, encourage ambulation -IV PPI twice daily -appreciate general surgery, GI recs -continue maintenance fluids -repeat CT abdomen/pelvis with PO contrast to help with SBO management GERDon IV Protonix OSAunable to tolerate CPAP I spent a total of 35 minutes in direct patient care, including [id number] time with the patient and/or family, reviewing medical records, ordering and reviewing diagnostic tests, and coordinating care with other healthcare providers. This time includes: history taking, physical examination, medical decision making, counseling, ECG interpretation, imaging interpretation, lab interpretation, orders, and education, excluding time spent in the performance of separately billed services. Admission and Anticipated Discharge Date Admission Date: May 13, 2025 Subjective Patient seen and examined at bedside. Patient walking hallway, states she feels fine at this time. Morphine effective for pain. Passing gas with no BM yet at this time. Review of Systems Review of Systems: CONSTITUTIONAL: Patient denies fevers, chills, sweats and weight changes. EYES: Patient denies any visual symptoms. EARS, NOSE, AND THROAT: No difficulties with hearing. No symptoms of rhinitis or sore throat. CARDIOVASCULAR: Patient denies chest pains, palpitations, orthopnea and paroxysmal nocturnal dyspnea. RESPIRATORY: No dyspnea on exertion, no wheezing or cough. GI: No nausea, vomiting, diarrhea, constipation, abdominal pain, hematochezia or melena. : No urinary hesitancy or dribbling. No nocturia or urinary frequency. No abnormal urethral discharge. MUSCULOSKELETAL: No myalgias or arthralgias. NEUROLOGIC: No chronic headaches, no seizures. Patient denies numbness, tingling or weakness. PSYCHIATRIC: Patient denies problems with mood disturbance. No problems with anxiety. ENDOCRINE: No excessive urination or excessive thirst. DERMATOLOGIC: Patient denies any rashes or skin changes. Physical Exam Physical Exam: Gen: A&O 3 NAD HEENT: NCAT, EOMI, not icteric. External ears normal. No rhinorrhea. Moist mucous membranes. Neck: Supple, full range of motion, no observable masses, No meningeal sign. Lungs: No Respiratory distress. CV: RRR, no edema. Abdomen: trace tenderness in lower abdomen, unchanged from prior MSK: No joint swelling, no redness. Skin: No rashes, petechiae, lesions. Normal color per patient. Neuro: Normal Gait, Grossly intact. Psych: Appropriate for situation. Results & Data Results & Data Vital Signs (Past 12 Hours) Vital Signs Temp Pulse Resp BP Pulse Ox O2 Del Method 05/15/25 07:15 36.6 C 82 18 133/85 98 Room Air Laboratory Results -personally reviewed, no leukocytosis, creatinine below baseline Medications Administered Acetaminophen (Ofirmev) 1,000 mg in 100 mls @ 400 mls/hr IV Q8H PRN PRN Reason: MILD-MOD PAIN Stop: 05/16/25 19:54 Last Infusion: 05/15/25 07:57 Dose: Infused Documented By: Admin: 05/15/25 07:34 Dose: 400 mls/hr Documented By: Infusion: 05/14/25 16:50 Dose: Infused Documented By: Admin: 05/14/25 16:30 Dose: 400 mls/hr Documented By: Infusion: 05/14/25 09:36 Dose: Infused Documented By: ADYolanda Admin: 05/14/25 09:18 Dose: 400 mls/hr Documented By: HUGH Pantoprazole Sodium (Protonix) 40 mg in 10 mls @ 5 mls/min IV BID PANCHO Stop: 06/12/25 22:39 Last Admin: 05/15/25 07:36 Dose: 5 mls/min Documented By: Admin: 05/14/25 20:16 Dose: 5 mls/min Documented By: Admin: 05/14/25 09:14 Dose: 5 mls/min Documented By: Admin: 05/13/25 23:00 Dose: 5 mls/min Documented By: EMMA Lactated Ringer's (Lr) 1,000 mls @ 110 mls/hr IV .Q9H6M PANCHO Stop: 05/17/25 08:29 Last Admin: 05/15/25 03:11 Dose: 100 mls/hr Documented By: Infusion: 05/15/25 03:11 Dose: Infused Documented By: Admin: 05/14/25 18:13 Dose: 100 mls/hr Documented By: Infusion: 05/14/25 18:13 Dose: Infused Documented By: Admin: 05/14/25 09:19 Dose: 100 mls/hr Documented By: HUGH Morphine Sulfate (Morphine Sulfate 2 Mg/Ml Carp) 2 mg IV Q6H PRN PRN Reason: SEVERE PAIN Stop: 05/27/25 19:54 Last Admin: 05/15/25 03:12 Dose: 2 mg Documented By: Admin: 05/14/25 20:16 Dose: 2 mg Documented By: Admin: 05/13/25 23:01 Dose: 2 mg Documented By: EMMA
--- NOTE | 2025-05-15 12:32 | CT Scan Report ---
ABDOMEN AND PELVIS CT WITH ORAL CONTRAST CT DOSE: 920.74 mGy.cm HISTORY: eval SBO TECHNIQUE: Multiaxial CT images of the abdomen and pelvis were performed following the use of oral co ntrast. A dose lowering technique was utilized adhering to the principles of ALARA. COMPARISON STUDY: 05/13/2025 FINDINGS: ABDOMEN: There is a tiny gallstone. Gallbladder is distended. No evidence of acute cholecystitis seen . Liver, spleen, pancreas, and adrenal glands have an unremarkable non-IV contrasted appearance. Stab le calculus lower left kidney. Kidneys show no hydronephrosis. No abdominal aortic aneurysm. Stable g astric bypass. Pelvis: Oral contrast was given. A small amount of contrast has progressed to the colon. There is mod erate retained stool. There are a few mildly dilated small bowel loops at the left upper quadrant claudia suring up to 3.5 cm, improved compared with 5 cm prior. No other bowel distention seen. No bowel infl ammation. No free fluid, free air, or abscess. Osseous structures: Stable mild lumbar degenerative changes with grade 1 anterolisthesis of L4 on 5 a nd L5 on S1. IMPRESSION: 1. A small amount of oral contrast has progressed to the colon. 2. Mild residual left upper quadrant small bowel distention, improved. 3. No acute findings seen otherwise. Otherwise as described. ACT 112: Negative or not required by law. The above report was generated using voice recognition software. It may contain grammatical, syntax o r spelling errors. Electronically signed by: Joseluis Mix M.D. 05/15/2025 12:30 PM
[2025-05-15 15:20] VITALS: O2SAT 99
[2025-05-16 07:24] VITALS: BP 128/85; PULSE 77; TEMP 97.7
[2025-05-16 07:28] LABS: Hematocrit (blood only) 35.1 % (37.0-47.0); Mean Corpuscular Hemoglobin 33.1 pg (25.0-34.0); Mean Corpuscular Hgb Conc 34.2 g/dL (32.0-36.0); Mean Corpuscular Volume 96.7 fL (80.0-100.0); Mean Platelet Volume 9.3 fL (9.4-12.4); Platelet Count 208 K/uL (130-400); RDW Standard Deviation 42.8 fL (36.4-46.3); Red Blood Count 3.63 M/uL (4.20-5.40); White Blood Count 4.03 K/ul (4.8-10.8)
[2025-05-16 08:02] LABS: BUN Creatinine Ratio 8.9 (10-20); Calcium 8.5 mg/dl (8.6-10.3); Creatinine Clr Calc Pharmacy 90.4 ml/min; Potassium 3.5 mmol/L (3.5-5.1)
--- NOTE | 2025-05-16 09:42 | Electrocardiogram Report ---
Test Reason : Blood Pressure : */* mmHG Vent. Rate : 87 BPM Atrial Rate : 87 BPM P-R Int : 142 ms QRS Dur : 84 ms QT Int : 380 ms P-R-T Axes : 56 -3 32 degrees QTcB Int : 457 ms Normal sinus rhythm Minimal voltage criteria for LVH, may be normal variant ( Martin product ) Borderline ECG When compared with ECG of 06-Jun-2018 19:10, No significant change was found Confirmed by Konstantin Espitia ([id number]) on 05/16/2025 9:41:54 AM Referred By: REFERRED SELF Confirmed By: Konstantin Espitia
--- NOTE | 2025-05-16 10:24 | Surgery Progress Note ---
Date of Service May 16, 2025 Assessment & Plan (1) SBO (small bowel obstruction): Plan: Pt with history of gastric bypass here w/ concern for SBO WBC 4. Vitals stable CT scan with oral contrast obtained yesterday revealing contrast reached the cecum with improved small bowel distention She is passing gas and loose stools. abdomen soft/non distended/non tender. she denies pain/n/v diet has been advanced, if tolerates can consider dispo later today as above. doing well. d/c planning Admission and Anticipated Discharge Date Admission Date: May 13, 2025 Subjective Patient feeling well. Denies abdominal pain, nausea/vomiting. Reports + flatus and loose stool. Feels some gas rumblings moving around. Physical Exam Physical Exam: awake/alert, no distress Gastrointestinal (Abdomen): Inspection/Auscultation: abdomen not distended Percussion/Palpation: abdomen soft; abdomen nontender Results & Data Vital Signs (Past 12 Hours) Vital Signs Temp Pulse Resp BP Pulse Ox O2 Del Method 05/16/25 07:23 97.7 F 77 18 128/85 99 Room Air PG Care Time/CCT Total # of Minutes Spent Total Time Spent with Patient: Total time spent is greater than 50% in coordination of care (as documented) at patient's floor/unit and/or counseling patient: Coding Level of Care Code 03871 SUB INP/OBS CARE 12/18MIN Diagnoses SBO (small bowel obstruction) K56.609
--- NOTE | 2025-05-16 13:36 | Discharge Summary ---
Discharge Summary Date of Service May 16, 2025 Principal Dx & Hospital Course #1 = Principal Diagnosis (1) Small bowel obstruction: Plan Small bowel obstruction Possible upper GI bleed -Patient with history of multiple abdominal surgery presents to the hospital with nausea, vomiting and coffee-ground emesis -Hemoglobin of 14.8 -CT abdomen and pelvis shows finding consistent with small bowel obstruction mainly seen implicating the jejunal loops. Plan: -Bowel rest with n.p.o., IV fluids, encourage ambulation -IV PPI twice daily -appreciate general surgery, GI recs -patient tolerating diet, medically stable for discharge GERDon IV Protonix OSAunable to tolerate CPAP Notes For Next Care Provider 59 yo female with pmhx chronic lymphocytic thyroiditis, SAMIRA, NSVT, GERD, status post gastric bypass, osteoarthritis who presented for abdominal pain. Found to have SBO, admitted to medicine. On medicine, surgery consulted, recommended bowel rest with fluids. CT abdomen/pelvis with PO contrast ordered given no BM in one day with diarrhea bowel movement obtained. On 05/16/2025, patient tolerating solid diet, per surgery and medicine patient medically stable for discharge home. To do: [ ] referral to GI for consideration of scope Medication Changes From Visit -see below Admission HPI Per Admitting Provider History obtained from chart review and interview with the patient. Past medical history of chronic lymphocytic thyroiditis, SAMIRA, NSVT, GERD, status post gastric bypass, osteoarthritis Past surgical history of laparoscopic hernia repair, lysis of adhesions in 2012, laparoscopic Alonso-en-Y bypass in 2016, partial hysterectomy in 2017, section x 2 Patient presents to the hospital with abdominal PAIN nausea and vomiting since last evening. She reports that the vomitus was coffee-ground in color. She denies fever, chills, chest pain or shortness of breath. On presentation to the ED she was normotensive, afebrile and saturating well in room air. CT abdomen pelvis showed features consistent with small bowel obstruction. ED provider discussed with surgery on-call; recommended conservative management with bowel rest, IV fluids. Discharge Exam Gen: A&O 3 NAD HEENT: NCAT, EOMI, not icteric. External ears normal. No rhinorrhea. Moist mucous membranes. Neck: Supple, full range of motion, no observable masses, No meningeal sign. Lungs: No Respiratory distress. CV: RRR, no edema. Abdomen: improved abdominal exam, trace tenderness only at this time MSK: No joint swelling, no redness. Skin: No rashes, petechiae, lesions. Normal color per patient. Neuro: Normal Gait, Grossly intact. Psych: Appropriate for situation. Updated Medication List Medication Instructions Recorded Confirmed Type omeprazole 20 mg capsule,delayed 20 mg PO DAILY 02/08/20 05/13/25 History release Bariatric Multivitamins 1 tab PO DAILY 05/13/25 05/13/25 History acetaminophen 500 mg tablet 500 - 1,000 mg PO Q6H PRN Pain 05/13/25 05/13/25 History oxybutynin chloride 5 mg 5 mg PO PM 05/13/25 05/13/25 History tablet,extended release 24 hr semaglutide (weight loss) 2.4 2.4 mg subcut WK 05/13/25 05/13/25 History mg/0.75 mL subcutaneous pen injector (Nehemiasgovanthony) Hospital Stay Data Consultations 05/13/25 19:33 ED Decision to Admit Stat 05/13/25 19:55 Consult Gastroenterology Routine Consult General Surgery Routine Diagnostic Imagining Performed 05/13/25 16:13 CT abd pelvis IV con only Stat 05/15/25 09:16 CT abd pelvis oral con only Routine Pending Results Patient Have Any Pending Studies at Discharge: No Discharge Instructions Given to Patient (Per Discharging Provider) 1. Please follow up with GI, surgery, and PCP. 2. Please follow low residue diet with smaller and more frequent meals throughout day. 3. Stay hydrated. Total Time Total Time Spent Total Time Spent (In Minutes): I spent a total of 35 minutes in direct patient care, including [id number] time with the patient and/or family, reviewing medical records, ordering and reviewing diagnostic tests, and coordinating care with other healthcare providers. This time includes: history taking, physical examination, medical decision making, counseling, ECG interpretation, imaging interpretation, lab interpretation, orders, and education, excluding time spent in the performance of separately billed services.
== END 2025-05-16 14:00 | disposition home or self-care (01) | DRG 389 ==
LOC: ED 15:14 → SUATTDRO 19:56 → 3N 19:56